=== PATIENT | female | born 2000 | race Caucasian/White ===

== ENCOUNTER 2018-10-28 11:50 | Observation (INO) | payer OTHER ==
[~2018-10-28] VITALS: Ht 157.5 cm; Wt 62.1 kg
--- NOTE | 2018-10-28 16:00 | NUR ---
PT TO ROOM FROM ER. REPORT RECEIVED FROM COURSEWARE DEVELOPER. PT A/O X4 VSS PT DENIES PAIN OR NAUSEA. ASSESSMENT COMPLETED. CALL LIGHT IN REACH. PT NPO AT THIS TIME. FAMILY AT BEDSIDE. PT USING HER LAPTOP AND APPEARS TO BE IN NO DISTRESS. PT DENIES NEEDS/CONCERNS.
--- NOTE | 2018-10-28 18:25 | NUR ---
REPORT TO CRESTER AND PT OFF FLOOR TO OR VIA HOSPITAL BED IN CARE OF CRESTER. IV ABX FLAGYL AND ROCEPHIN ALSO SENT TO OR WITH CRESTER.
--- NOTE | 2018-10-28 18:29 | CONS ---
[facility] [address], [place] [address] Signed DATE OF CONSULTATION: 10/28/2018 CHIEF COMPLAINT: Right lower quadrant abdominal pain. HISTORY OF PRESENT ILLNESS: Deysi is a 18-year-old young lady, otherwise healthy, who earlier today developed right lower quadrant abdominal pain with nausea. She had a little bit this morning, but has not been able to eat since then. She came to the emergency room with her family for evaluation. She was tender below [place] [id number]. Her beta-hCG was negative. The CT scan confirmed her thickened inflamed appendix stretching down towards the right side of the bladder. I was asked to admit her as a general surgeon on-call. She has been given IV fluids, pain medication and some Zosyn. Overall, she says she is doing fine. PAST MEDICAL HISTORY: Asthma as a child, but none since age 5. PAST SURGICAL HISTORY: IUD, tonsillectomy, and PE tubes. SOCIAL HISTORY: She does not smoke. She has an occasional drink. She and her mom prefer the [facility]. Richard Reynolds is her primary care provider. FAMILY HISTORY: The patient is adopted. REVIEW OF SYSTEMS: She had asthma as a child, but it stopped at age 5. ALLERGIES: None. MEDICATIONS: None. PHYSICAL EXAMINATION: VITAL SIGNS: Blood pressure 123/68, heart rate 76, respiratory rate 16, temperature 98.3. She is 98% on room air. She is 5 feet 2 inches, 62 kg. GENERAL: Deysi is a 18-year-old female who appears healthy and at her stated age. She actually walked from the bathroom back to bed and lie down without much difficulty. She does not appear systemically ill or toxic. Electronically Signed By: RIGO PUGH MD 10/28/18 1829 PATIENT NAME: DEYSI RIVAS CONSULTATION DATE OF : [birth year] REPORT #: [id number] PHYSICIAN: RIGO PUGH MD PCP: RICHARD REYNOLDS [facility] REPORT IS CONFIDENTIAL AND NOT TO BE RELEASED WITHOUT AUTHORIZATION [facility] [address], [place] [address] Signed LUNGS: Generally clear to auscultation bilaterally. HEART: Regular rate and rhythm. ABDOMEN: Soft, flat, but tender below McBurney's point on the right side. LABORATORY DATA: Her white blood cell count 13, hemoglobin 14, neutrophils 68. Electrolytes unremarkable. Beta-hCG negative. Albumin is 5. Liver function tests are negative. RADIOGRAPHIC STUDIES: A CT scan of abdomen and pelvis is reviewed and one can easily see the appendix thickened and dilated and headed down towards the right side of bladder. ASSESSMENT AND PLAN: Deysi is a 18-year-old female who presents with acute appendicitis. We have discussed the location and function of the appendix. We have discussed laparoscopic versus open appendectomy. We have reviewed the expected intraop and postop course. There is risk to surgery including, but not limited to bleeding, infection, scarring, change in contour of the skin, damage to bowel, appendiceal stump leak, postoperative intraabdominal abscess, and other unforeseen comorbidities. She and her mom expressed understanding and wished to proceed with surgery. Rigo Pugh MD ALB/MODL /[id number] cc: Richard Reynolds Copies: ~ Electronically Signed By: RIGO PUGH MD 10/28/18 1829 PATIENT NAME: DEYSI RIVAS CONSULTATION DATE OF : [birth year] REPORT #: [id number] PHYSICIAN: RIGO PUGH MD PCP: RICHARD REYNOLDS PAC REPORT IS CONFIDENTIAL AND NOT TO BE RELEASED WITHOUT AUTHORIZATION
--- NOTE | 2018-10-28 20:33 | NUR ---
10/28/182032 Miky,Chelsey Hassan 1952: PATIENT AWAKE. CALM. DENIES PAIN. O2 MASK REMOVED. PATIENT ON ROOM AIR. 1957: PATIENT C/O PAIN 7/10. MEDICATED FOR PAIN WITH IV FENTANYL. PATIENT CRYING INTERMITTENTLY. 2004: PATIENT C/O PAIN IN UPPER CHEST BY CLAVICLES. DENIES DIFFICULTY BREATHING. PATIENT REASSURED IT MOST LIKELY IS FROM CO2 GAS USED TO INFLATE ABDOMEN DURING SURGERY. PATIENT MEDICATED FOR PAIN WITH IV FENTANYL. 2009: PATIENT STATES PAIN INPROVED. RATES PAIN 5/10. 2020: PATIENT TRANSFERRED BACK TO M/S ROOM 113. FAMILY WAITING FOR PATIENT IN ROOM. REPORT GIVEN TO M/S RN.
--- NOTE | 2018-10-28 20:48 | NUR ---
2014 - arrived to floor from PACU, awake, alert and oriented. 2039 - Coop with assessment, 3 abd lap sites cdi, not passing gas, ivf infusing w/o problems. Family in room, scds in place,
--- NOTE | 2018-10-28 21:29 | NUR ---
VITALS DONE AND CHARTED.
--- NOTE | 2018-10-28 21:33 | NUR ---
MEDICATED WITH DILAUDID 0.5MG IV PER C/O ABD PAIN
--- NOTE | 2018-10-28 22:23 | NUR ---
AWAKENS EASILY, NO FURTHER C/O ABDPAIN. LAP SITES CDI. DENIES PASSING GAS. IVF INFUSING W/O PROBLEMS. CALL LIGHT AND FLUIDS AT BEDSIDE. FAMILY IN ROOM
--- NOTE | 2018-10-28 22:26 | NUR ---
VITALS DONE AND CHARTED.
--- NOTE | 2018-10-28 23:29 | NUR ---
VITALS DONE AND CHARTED. HELPED PT BACK FROM THE BATHROOM. BEDSIDE TABLE AND CALL LIGHT IN REACH. PT ASKED FOR PAIN MEDS, I INFORMED CADD MANAGER NURSE VLAD.
--- NOTE | 2018-10-28 23:40 | NUR ---
PT C/O 12/13 ABD PAIN. MEDICATED WTIH DILAUDID 1MG IV. PT GOT UP TO BR EARLIER AND VOIDED, NO N/V. BACK IN BED WATCHING TV. TOLERATING SIPS OF WATER. FAMILY INROOM
--- NOTE | 2018-10-29 01:12 | NUR ---
RESTING, NO DISTRESS, CPOX IN PLACE, NO FURTHER C/O PAIN, CALL LIGHT AT BEDSIDE
--- NOTE | 2018-10-29 01:44 | NUR ---
VITALS AND I&OS DONE AND CHARTED. BEDSIDE TABLE AND CALL LIGHT IN REACH. PT NEEDS NOTHING MORE AT THIS TIME.
--- NOTE | 2018-10-29 03:00 | NUR ---
RESTING, NO DISTRESS
--- NOTE | 2018-10-29 04:06 | NUR ---
AWAKE, UP TO BR, VOIDED, BACK TO BED, 1PA. C/O ABD PAIN. 11/12. MEDICATED WTIH DILAUDID 1MG IV. TOLERATING CLEAR FLUIDS, NO N/V, NOT PASSING GAS. CALL LIGHT AT BEDSIDE. IVF INFUSING W/O PROBLEMS
--- NOTE | 2018-10-29 05:55 | NUR ---
Currently resting, eyes closed, no c/o pain at this time. On room air, IVF infusing w/o problems. Abd 3 lap sites CDI. Denies passing flatus or burping. Has been medicated 3x with Dilaudid per abd pain with good pain control. Has tolerated clear liquids well, no n/v. Up to br x2, voiding QS.
--- NOTE | 2018-10-29 06:37 | NUR ---
VITALS AND I&OS DONE AND CHARTED. BEDSIDE TABLE AND CALL LIGHT IN REACH. PT NEEDS NOTHING ELSE AT THIS TIME.
--- NOTE | 2018-10-29 07:22 | NUR ---
RECIEVED BEDSIDE REPORT FROM ALEXA ALARCON. LAP APPY SITES ARE C/D/I. ABD IS TENDER. SHE IS TOLERATING SIPS OF CLEAR LIQUIDS. NO FLATUS REPORTED. VOIDING WELL. PAIN WELL CONTROLLED WITH PRN DILAUDID. CONTINUED CPOX DUE TO BRADYCARDIA AT TIMES.
--- NOTE | 2018-10-29 08:00 | NUR ---
CALL LIGHT ANSWERED. PATIENT GOES TO USE BATHROOM. BOYFRIEND IN ROOM. PATIENT BACKS TO BED. PATIENT COMPLAINS ABOUT PAIN. RN NOTIFIED. CALL LIGHT WITHIN REACH. NO OTHER NEEDS AT THIS TIME
--- NOTE | 2018-10-29 08:17 | OR ---
[facility] [address], [place] [address] Signed DATE OF OPERATION: 10/28/2018 SURGEON: Rigo Pugh MD PREOPERATIVE DIAGNOSIS: Acute appendicitis. POSTOPERATIVE DIAGNOSIS: Acute inflamed appendicitis. PROCEDURE: Laparoscopic appendectomy. ESTIMATED BLOOD LOSS: None. INDICATIONS: Deysi is a 18-year-old young lady, otherwise healthy, who developed right lower quadrant abdominal pain with nausea earlier today. She came to emergency room for evaluation. She was not systemically ill or toxic, but she was tender below McBurney's point. White count was up at 13,000. Beta-hCG was negative. A CT scan of the abdomen and pelvis showed her inflamed thickened dilated appendix headed down towards the right side of the bladder. She was admitted and given IV fluids, Zosyn, and pain control. I met with Deysi and her mother and her boyfriend earlier today. I explained to them the above findings. We reviewed the location and function of the appendix. We reviewed laparoscopic versus open appendectomy. They understand the expected intraop and postop course. We did review the risks including, but not limited to bleeding, infection, scarring, change in contour of the skin, damage to bowel, appendiceal stump leak, postoperative intraabdominal abscess, incisional hernias, and other unforeseen comorbidities. She had expressed understanding and wished to proceed. PROCEDURE NOTE: Deysi was taken in the operating room and placed in the supine position under general endotracheal tube anesthesia. She was given some Rocephin and Flagyl at start of the case. She was on subcutaneous heparin. SCDs were utilized. A Noble catheter was inserted with return of clear yellow urine. She was then prepped and draped in the usual sterile fashion. All trocars were then placed in usual positions under direct visualization of camera without difficulty. The appendix was easily elevated above the pelvis and from the cecum with linear stapler. The mesoappendix was then divided with our vascular load on linear stapler. Both staple lines were quite Electronically Signed By: RIGO PUGH MD 10/29/18 0817 PATIENT NAME: DEYSI RIVAS OPERATIVE REPORT DATE OF : [birth year] REPORT #: [id number] PHYSICIAN: RIGO PUGH MD PCP: RICHARD REYNOLDS PAC REPORT IS CONFIDENTIAL AND NOT TO BE RELEASED WITHOUT AUTHORIZATION [facility] [address], [place] [address] Signed hemostatic. The appendix was placed into an EndoCatch bag and taken out through the right subcostal trocar site. We used our laparoscopic suturing device to pass 0 Vicryl suture on either side of the fascia of the right subcostal trocar site. This was tied down to close this fascia primarily. After this, the gas was allowed to escape and the remaining trocars were removed. We closed the supraumbilical fascial trocar site with interrupted 0 Vicryl sutures. Local anesthetic was injected into all trocar sites. Each trocar site was irrigated and suctioned out until clear. The dermis of each trocar site was closed with interrupted 3-0 subcuticular Monocryl sutures. The skin edges were reapproximated with a running 6-0 fast absorbing plain gut suture. Deysi's Noble catheter was then removed without difficulty. She had 100 mL of clear yellow urine. Dry gauze and tape were then applied to all incisions. She was awakened from her anesthesia, extubated in the OR, and taken to recovery room in stable condition. Rigo Pugh MD ALB/MODL /[id number] cc: MD Keenan Watts Copies: RIGO PUGH MD ~ Electronically Signed By: RIGO PUGH MD 10/29/18 0817 PATIENT NAME: DEYSI RIVAS OPERATIVE REPORT DATE OF : [birth year] REPORT #: [id number] PHYSICIAN: RIGO PUGH MD PCP: RICHARD REYNOLDS [facility] REPORT IS CONFIDENTIAL AND NOT TO BE RELEASED WITHOUT AUTHORIZATION
--- NOTE | 2018-10-29 09:15 | NUR ---
CALL LIGHT ANSWERED. PATIENT GOES TO USE BATHROOM. ONE PERSON ASSISTING. PATIENT BACKS TO BED. MOM AND BOYFRIEND IN ROOM. VITAL SIGNS AND I&O DONE. CALL LIGHT WITHIN REACH. NO OTHER NEEDS AT THIS TIME
--- NOTE | 2018-10-29 09:40 | NUR ---
ASSISTED PATIENT WITH AMBULATION. PATIENT AMBULATE ONE LAP IN THE [place]. PATIENT BACKS TO BED. CALL LIGHT WITHIN REACH. NO OTHER NEEDS AT THIS TIME
--- NOTE | 2018-10-29 09:44 | NUR ---
PT UP WALKING IN HALLS. PT TOLERATED WELL, SHE DID STATE THAT IT WAS HARDER THAN SHE THOUGHT. RN ENCOURGED HER TO CONTINUE TO WALK SEVERAL TIMES A DAY TO GET THE GAS MOVING.
--- NOTE | 2018-10-29 11:59 | NUR ---
PT RESTING IN BED WITH BOYFRIEND AT . SHE IS ALERT AND ORIENTED. VERY PLEASANT, POLITE AND DID EXPRESS THAT SHE DESIRED MORE INFO REGARDING HER CONDITION POST OP AND DC POSSIBILITY. I SHARED WITH ALEXA FISH, SHE WILL SPEND SOME TIME WITH PT. PT THANKED ME FOR TIME, WILL FOLLOW NEEDED
--- NOTE | 2018-10-29 12:12 | NUR ---
SPOKE WITH [employer] REGARDING CM NEEDS FOR PATIENT. SHE STATES THIS PATIENT HAS NO NEEDS AT THIS TIME. SHE IS INDEPENDENT ADULT, HAS GOOD FAMILY SUPPORT, HAS PCP, HAS RESPONSIBLE RIDE HOME. DEFER ASSESSMENT AT THIS TIME, STAFF WILL PLACE CONSULT IF NEEDS ARISE.
--- NOTE | 2018-10-29 13:29 | NUR ---
PATIENT SITTING UP IN BED. BOYFRIEND IN ROOM. VITAL SIGNS AND I&O DONE. ICE WATER GIVEN. CALL LIGHT WITHIN REACH. NO OTHER NEEDS AT THIS TIME
--- NOTE | 2018-10-29 15:59 | NUR ---
PT IN THE SHOWER WITH ASSIST FROM HER MOTHER. RN WILL DC DRESSINGS AFTER SHOWER. PT HAS BEEN UP WALKING THE HALLS, TOLERATED WELL. PRN WALTER EFFECTIVE.
--- NOTE | 2018-10-29 16:10 | NUR ---
DRESSINGS D/C. SITES ARE WELL APROXIMATED, C/D/I. NO REDNESS, SWELLING, WARMTH, OR DRAINAGE.
--- NOTE | 2018-10-29 17:35 | NUR ---
PT UP AMBULATING IN HALLS, TOLERATES WELL. PT TOLERATES SMALL AMTS OF FULL LIQUIDS. IVF RUNNING PER ORDER. PT UP TO SHOWER. DRESSINGS ON INCISIONS DC. INCISIONS CDI, NO REDNESS, SWELLING, WARMTH. PAIN BETTER CONTROLLED WITH PRN NORCO Q4 HRS. NO GAS, NO BM.
--- NOTE | 2018-10-29 20:46 | NUR ---
BAND MACHINE OPERATOR ROUNDING COMPLETE. PT RESTING IN BED AWAKE. STATES THAT PAIN CONTINUES TO BE WELL CONTROLLED. DENIES NEEDS AT THIS TIME. CALL LIGHT IN REACH.
--- NOTE | 2018-10-29 20:55 | NUR ---
Vital signs and I&Os were complete, Patient doesnt need anything further at this time.
--- NOTE | 2018-10-29 21:59 | NUR ---
c/o abd pain 10/13, medicated with 2 norco tabs. coop with assessment, Denies passing gas or burping. no n/v, tolerating ful liquid diet
--- NOTE | 2018-10-30 00:19 | NUR ---
resting, eyes closed, no further c/o pain. Passing gas, IVF infusing w/o problems. scds off at her request, Declined Heparin SQ earlier, walked hallways with family 3x, tolerated well, Call light at bedside
--- NOTE | 2018-10-30 03:09 | NUR ---
UP TO BR, VOIDED CLEAR YELLOW URINE, BACK TO BED, TOLERATED WELL. C/O ABD PAIN 4/10, MEDICATED WITH 2 NORCO TABS, TOLERATING FULL LIQUID DIET WELL. NO N/V, CALL LIGHT AT BEDSIDE
--- NOTE | 2018-10-30 05:34 | NUR ---
CURRENTLY RESTING, HAS BEEN MEDICATED WITH NORCO 2X PER ABD PAIN WITH GOOD PAIN RELIEF. ABD LAP SITES INCISION W EDGES WELL APPROX, DRY. PASSING GAS, NO BM. TOLERATING FULL LIQUID DIET WELL, NO N/V. HAS WALKED HALLWAYS SEVERAL TIMES WITH FAMILY. IVF INFUSING W/O PROBLEMS
--- NOTE | 2018-10-30 06:53 | NUR ---
MEDICATED WITH 2 NORCO C/O 09/12 ABD PAIN. PASSING GAS, NO BM. TOLERATING FULL LIQUID DIET. FAMILY IN ROOM.
--- NOTE | 2018-10-30 07:09 | NUR ---
RECIEVED BEDSIDE REPORT FROM ALEXA ALARCON. PT SLEEPING SOUNDLY. PAIN WELL CONTROLED WITH PRN NORCO. PT IS PASSING GAS. IV IS S/L, TOLERATING PO FLUIDS WELL AND VOIDING VERY WELL. INCISIONS ARE CDI.
--- NOTE | 2018-10-30 07:48 | NUR ---
PT DECLINED HEPRIN INJECTION, STATED SHE "WOULD WALK ALL DAY RATHER THAN GET THAT SHOT". RN REMINDED HER THAT SHE NEEDS TO WALK FREQUENTLY. SHE HAS WALKED SEVERAL LAPS AROUND THE UNIT ALREADY THIS AM. NO BM, BUT IS PASSING GAS. REMINDED PT TO BRACE ABD WHEN COUGHING.
[2018-10-30] MEDS ORDERED: NORCO 5-325 TA1 EACH PO (09:07)
[2018-10-30] MEDS ORDERED: ADVIL200 MG PO (09:08)
--- NOTE | 2018-10-30 10:19 | NUR ---
PT DISCHARGE TEACHING COMPLETE. RN DISCUSSED WHEN TO CALL THE DR, FOLLOW UP, WORK RELEASE, DIET, AND PCP FOLLOW UP. PT AND HER MOTHER VERBALIZED UNDERSTANDING. IV REMOVED, CATH INTACT. VSS, HR KAYDEN MD AWARE AND PT WILL FOLLOW UP WITH PCP.
--- NOTE | 2018-10-31 08:39 | DS ---
[facility] [address], [place] [address] Signed ADMISSION DATE: 10/28/2018 DISCHARGE DATE: 10/30/2018 FINAL DIAGNOSIS: Acute inflamed appendicitis. PROCEDURE: Laparoscopic appendectomy. HISTORY OF PRESENT ILLNESS: Deysi is a 18-year-old female who came to the emergency room with a day history of right lower quadrant abdominal pain, nausea, and vomiting. In the ER, her vital signs were fine and her white count was at 13,000. Beta-hCG was negative. CT scan showed her appendicitis and she was tender in the right lower quadrant below McBurney's point. HOSPITAL COURSE: Deysi was admitted as above and started on IV fluids, pain control, and her Zosyn. She was taken to the operating room later that day for an uncomplicated laparoscopic appendectomy for acutely inflamed appendicitis. Her intraoperative and postoperative course were uncomplicated. The Tylenol was not enough to control her pain, so we had to bump her up to [place] 5 mg tablets. She has done very well after that. She is now tolerating her full liquid diet and has had moderate amount of flatus. She is able to perform her activities of daily living without difficulty and her abdominal exam is completely benign. She has now reached discharge status. DISCHARGE PLANS AND MEDICATIONS: Deysi will be discharged home with a prescription for [place] 5 mg tablets, 1 to 2 tablets p.o. q.4 to 6 hours p.r.n. severe postoperative pain. We will dispense 25 tablets with no refills. She can certainly purchase Tylenol, ibuprofen, or Naprosyn over the counter and use that for ygys-kf-vehahzra postoperative pain here in the next few days. She can always use ice over her incisions as well. She will continue a regular diet. She can perform her activities of daily living including walking up and down stairs and showering and bathing as usual. We have asked her not to do any heavy pushing, pulling, or lifting over about 20 pounds. We will keep her off work for now. We will see her back in the office in about a week. She did ask me to fill out a release from work form, which I did yesterday. Our nursing staff is in the process of getting the original copy currently here at discharge. She has expressed understanding and agrees above plan. Electronically Signed By: RIGO PUGH MD 10/31/18 0839 PATIENT NAME: DEYSI RIVAS DISCHARGE SUMMARY DATE OF : [birth year] REPORT #: [id number] PHYSICIAN: RIGO PUGH MD PCP: RICHARD REYNOLDS PAC REPORT IS CONFIDENTIAL AND NOT TO BE RELEASED WITHOUT AUTHORIZATION [facility] [address] [place] [address] Signed MD JENNY Watts/GREGORIA /[id number] cc: MD Keenan Watts Copies: RIGO PUGH MD ~ Electronically Signed By: RIGO PUGH MD 10/31/18 0839 PATIENT NAME: DEYSI RIVAS DISCHARGE SUMMARY DATE OF : [birth year] REPORT #: [id number] PHYSICIAN: RIGO PUGH MD PCP: RICHARD REYNOLDS [facility] REPORT IS CONFIDENTIAL AND NOT TO BE RELEASED WITHOUT AUTHORIZATION
== END 2018-10-30 09:55 | disposition home or self-care (01) ==
LOC: ED 11:50 → MS 11:52
PROVIDERS: ADMIT Colon & Rectal Surgery
PROC: 0DTJ4ZZ Resection of Appendix, Percutaneous Endoscopic Approach (ICD-10-PCS; principal; 2018-10-28 18:00)
DX: K35.80 Unspecified acute appendicitis (principal); Z97.5 Presence of (intrauterine) contraceptive device
CPT/HCPCS: 00840; 74177; 80053; 81001; 83690; 84703; 85025; 96361; 96365; 96372; 96375; 96376; 99285-25; G0378; J0696; J1100; J1170; J1644; J1885; J2250; J2270; J2405; J2543; J2704; J3010; J7060; J7120; Q9967

== ENCOUNTER 2018-11-22 16:24 | Inpatient (IN) | payer OTHER ==
[~2018-11-22] VITALS: Ht 157.5 cm; Wt 60.8 kg
--- NOTE | ~2018-11-22 | DS ---
[facility] [address], [place] [address] Draft ADMISSION DATE: 11/23/2018 DISCHARGE DATE: 11/28/2018 FINAL DIAGNOSIS: Distal small-bowel obstruction with ischemic bowel. PROCEDURES: Small-bowel resection with ntcb-ll-omok stapled anastomosis. HISTORY OF PRESENT ILLNESS: Deysi is a 18-year-old lady who came to us about a month prior to this admission for a routine laparoscopic appendectomy. She had inflamed appendix, which was easily elevated and removed with the help of the linear staplers. We have seen her in followup in the office. She was doing quite well. She came to our emergency room abruptly with severe crampy pain, nausea and vomiting. Her white count was up to 23,000. The CT scan showed some dilated loops of small bowel in the right pelvis. I have been asked to admit her as a general surgeon on-call. HOSPITAL COURSE: Deysi was admitted as above and started on her IV fluids, antibiotics and pain control. By the next morning, her laboratory work was not improved and she was having pain requiring narcotics in the right lower quadrant. We therefore took her to the operating room later that day for an infraumbilical laparotomy. She had what looked like a piece of small bowel that it twisted around itself about 8-10 cm from the ileocecal valve. That bowel was not salvageable, so it was resected and stapled amrn-sf-jybd anastomosis was performed. She has done well both intraop and postop. She is now eating, tolerating her food without any nausea or vomiting. She has had some diarrhea and if it does not clear, we have to send off some stool studies. I have explained this to her. Her incision is healing well. She is performing her activities of daily living and showering, bathing as usual. We have stopped antibiotics and again she has made good progress. We are discharging her to home. DISCHARGE PLANS AND MEDICATIONS: Deysi will be discharged home with a prescription for [place] 5/325 one tablet p.o. q.6 hours p.r.n. for severe postoperative pain, dispense 15 tablets with no refills. Otherwise, she can use some Tylenol, ibuprofen or Aleve for eqbv-py-pjgizrlv postoperative pain. In addition, she does have red hair and light skin. She is very sensitive. She had a rash, we think to the Flagyl, but today she had a rash in her left arm and we did stop the Zosyn yesterday. Consequently, we are not sure why she has that particular rash. She told me she uses some Benadryl cream and that really helps. She is certainly welcome to do that at home. I have asked her not to do any heavy pushing, PATIENT NAME: DEYSI RIVAS DISCHARGE SUMMARY DATE OF : [birth year] REPORT #: [id number] PHYSICIAN: RIGO PUGH MD PCP: RICHARD REYNOLDS PAC REPORT IS CONFIDENTIAL AND NOT TO BE RELEASED WITHOUT AUTHORIZATION [address] [address] [place] pulling, or lifting over about 20 pounds for a month and 50 pounds for a 2nd month, and then no restrictions. She can continue to shower and bathe as usual. 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 It is perfectly fine. She has expressed understanding and agrees above plan. MD JENNY Watts/DONELLL /[id number] cc: MD Richard Watts PA-C Copies: RIGO PUGH MD ~ PATIENT NAME: DEYSI RIVAS DISCHARGE SUMMARY DATE OF : [birth year] REPORT #: [id number] PHYSICIAN: RIGO PUGH MD PCP: RICHARD REYNOLDS PAC REPORT IS CONFIDENTIAL AND NOT TO BE RELEASED WITHOUT AUTHORIZATION
[~2018-11-22 16:24] MED LIST: ADVIL200 MG PO; NORCO 5-325 TA1 EACH PO
--- OUTSIDE RECORDS SUMMARY | 2018-11-22 16:26 | XMS ---
PreManage Notification: DEYSI RIVAS Security End Trimmer Events No recent Security Events currently on file CRITERIA MET - [facility] - 2 Visits in 30 Days CARE PROVIDERS BRENDA SHORE Nurse Practitioner: Adult Health Current PHONE: Unknown BRENDA SHORE Primary Care Current PHONE: Unknown Kamala has no Care Guidelines for this patient. Carlos VISIT COUNT (12 MO.) [address] [place] [address] TOTAL 2 NOTE: Visits indicate total known visits. ED/UCC VISIT TRACKING (12 MO.) 11/22/2018 16:25 [facility] OR TYPE: Emergency COMPLAINT: - ABD PAIN 10/28/2018 11:51 [facility] OR TYPE: Emergency COMPLAINT: - R ABD PAIN/NAUSEA INPATIENT VISIT TRACKING (12 MO.) 10/28/2018 11:52 [facility] OR TYPE: Observation COMPLAINT: - ACUTE APPENDICITIS DIAGNOSES: - Unspecified acute appendicitis - Right lower quadrant pain - Presence of (intrauterine) contraceptive device [email or web address]
--- NOTE | 2018-11-22 20:30 | NUR ---
PATIENT ARRIVED FROM THE ED WITH HER MOTHER. MAIKEL LENNON ASSISTED PATIENT TO BED. ORIENTED PATIENT TO THE ROOM. OPERATIONS EXPERT IN TO ASSIST WITH ADMISSION. DISCUSSED PLAN OF CARE. WRITTEN EDUCATION PROVIDED.
--- NOTE | 2018-11-22 22:00 | NUR ---
PRN PAIN AND NAUSEA MEDS PROVIDED. DISCUSSED NG TUBE PLACEMENT WITH PATIENT AND HER MOTHER. ALL QUESTIONS ANSWERED. NG TUBE PLACEMENT COMPLETED, PATIENT TOELRATED WELL. X-RAY CALLED TO CONFIRM PLACEMENT.
--- NOTE | 2018-11-22 23:00 | NUR ---
NG TUBE CONFIRMED VIA X-RAY, CONNECTED TO LIWS WITH SMALL AMOUNT OF BROWN OUTPUT NOTED. PATIENT REPORTS GOOD PAIN CONTROL AT THIS TIME AND NO NAUSEA.
--- NOTE | 2018-11-23 00:05 | NUR ---
PATIENT RESTING IN BED. BOYFRIEND AT BEDSIDE. PATIENT REPORTS GOOD PAIN CONTROL AND NO NAUSEA AT THIS TIME. NG TO LIWS, MINIMAL OUTPUT AT THIS TIME.
--- NOTE | 2018-11-23 01:45 | NUR ---
SCHEDULED ABX PROVIDED. PATIENT RESTING IN BED. WOKE EASILY TO VOICE. REPORTS PAIN 10/13. PRN MORPHINE PROVIDED. NG TUBE TO LIWS. MINIMAL OUTPUT. PATIENT DENIES NAUSEA.
--- NOTE | 2018-11-23 04:15 | NUR ---
PATIENT UP TO THE BATHROOM. SBA. PATIENT REPORTS GOOD PAIN CONTROL BUT HER THROAT IS SORE. LOZENGE PROVIDED. NG TUBE IN PLACE. IV FLUIDS PER ORDER. PATIENT DENIES NAUSEA.
--- NOTE | 2018-11-23 06:17 | NUR ---
PATIENT ARRIVED AROUND 2029 LAST NIGHT. NG TUBE PLACED PER ORDER, 200ML OUTPUT FOR SHIFT. MINIMAL NAUSEA SINCE ADMISSION. PRN MORPHINE X3 FOR ADEQUATE PAIN RELIEF. BOWEL SOUNDS ARE HYPOACTIVE. URINE OUTPUT QS. VS STABLE. IV FLUIDS PER ORDER. NPO. SBA.
--- NOTE | 2018-11-23 07:29 | NUR ---
REPORT RECEIVED FROM ALEXA SMITH. PT RESTING IN BED WITH BOYFRIEND AT BEDSIDE. PT REPORT 4/10 PAIN AT THIS TIME. NC TUBE IN PLACE TO LOW INTERMITTANT SUCTION. NO ADDITIONAL REQUESTS OR COMPLAINTS AT THIS TIME. CALL LIGHT WITHIN REACH.
--- NOTE | 2018-11-23 08:15 | NUR ---
MORNING ASSESSMENT AND MEDICATION DUE. PT RESTING IN BED. PT REPORTS 5/10 PAIN. SEE MAR FOR MEDICAITON GIVEN. ASSESSMENT DONE. PRE-OP EDUCATION DONE. PRE PROCEEDURE CHECK LIST COMPLETED. PT UP TO WHIPE DOWN WITH CHG WIPES. MEDICATIONS GIVEN. PT VERBALIZES UNDERSTANDING OF PROCEEDRES. NG TUBE TO LOW INTERMITTANT SUCTION. BOYFRIEND AT BEDSIDE. CALL LIGHT WITHIN REACH.
--- NOTE | 2018-11-23 10:44 | NUR ---
THIS RN TO ROOM TO CHECK ON PT. PT REPORTS 2/10 PAIN AND DENIES NEED FOR ADDITIONAL PAIN MEDICAITON AT THIS TIME. PT REQUESTS CEPACOL LOSENGE (SEE MAR FOR MEDICAITON GIVEN.). MOTHER AT BEDSIDE. QUESTIONS ABOUT PROCEDURES ASKED AND ANSWERED. NO ADDITIONAL REQUESTS OR COMPLAINTS AT THIS TIME. CALL LIGHT WITHIN REACH.
--- NOTE | 2018-11-23 11:30 | NUR ---
NOON ASSESSMENT DUE. PT REPORTS 5/10 PAIN, SEE MAR FOR MEDICATION GIVEN. PT DENIES NASUEA AND DENIES NEED FOR CEPACOL LOZANGE AT THIS TIME. ASSESSMENT DONE. FAMILY AT BEDSIDE. NG TUBE TO LOW INTERMITTANT SUCTION. PT ANTICIPATING OR RNS TO ARRIVE SOON. NO ADDITIONAL REQUESTS OR COMPLAINTS. CALL LIGHT WITHIN REACH.
--- NOTE | 2018-11-23 11:45 | NUR ---
OR RNS ARRIVED. PT TAKEN TO SURGERY DEPARTMENT. FAMILY ACCOMPANYING PT. NO ADDITIONAL REQUESTS OR COMPLAINTS AT THIS TIME.
--- NOTE | 2018-11-23 14:01 | NUR ---
PT TAKEN TO SURGERY, WILL FOLLOW UPON RETURN
--- NOTE | 2018-11-23 15:14 | NUR ---
PT FINISHED WITH SHOWER. THIS RN TO ROOM TO CHECK ON PT. PTS REPORTS A "SPOT OF BLOOD ON THE TOWEL." PTS REPROTS SHE HAD APPLIED NYSTATIN POWDER. PTS ADVISED TO CALL NURSING STAFF BEFORE APPLYING POWDER. KASEY AREA ASSESSED, REDNESS NOTED, NYSTATIN IN PLACE. NO ADDITIONAL CONCERNS AT THIS TIME, NO ADDITIONAL WOUNDS NOTED. PT VISITING WITH FAMILY. CALL LIGHT WITHIN REACH.
--- NOTE | 2018-11-23 15:20 | NUR ---
PT ARRIVED FROM PACU. PT DENIES ABDOMINAL PAIN AND NAUSEA BUT IS EXPRESSES EXTREME DISCOMFORT AND DISTRESS OVER RODRIGUEZ CATHTER. PT STATES SHE WANTS IT REMOVED SOON POSSIBLE AND MAY REFUSE THE CATHETER. MD CALLED. ORDERS GIVEN TO REMOVE RODRIGUEZ CATHETER, REMOVED PER PROTOCOL. ASSESSMENT DONE. DRESSING C/D/I. VITALS TAKEN. IV ABX STARTED. ICE AND WARM BLANKET PROVIDED. CPOX IN PLACE, PT AT 98% ON ROOM AIR. MOTHER AT BEDSIDE. CALL LIGHT WITHIN REACH. BED RAILS UP.
--- NOTE | 2018-11-23 16:06 | NUR ---
VITALS AND ASSESSMENT DUE. THIS RN TO BEDSIDE. PT VISITING WITH BOYFRIEND. PT SUCKING ON ICE CHIPS. PT DENIES PAIN AND NAUSEA. DRESSING C/D/I. VITALS TAKEN. PT DENIES ADDITIONAL REQUESTS OR COMPLAINTS AT THIS TIME. CALL LIGHT WITHIN REACH. BED RAILS UP.
--- NOTE | 2018-11-23 16:08 | NUR ---
[facility]ED [facility] PACU NON RESPONSIVE TO VERBAL/TACTILE STIMULI WITH ORAL AIRWAY IN PLACE. 1452 PT REACTIVE. ORAL AIRWAY REMOVE. 1500 OXYGEN REMOVED. SATS 98% ON RA. SITTING UP AT 30' WITH NO C/O'S PAIN. 1510 C/O DISCOMFORT FROM RODRIGUEZ. REPOSITIONED CATHETER AND DRAINING CLEAR YELLOW URINE. TALKED WITH PT ABOUT REMOVING CATHETER IN AM. 1520 TO ROOM 125. REPORT GIVEN TO ALEXA MCCARTHY.
--- NOTE | 2018-11-23 16:45 | NUR ---
PATIENT UP TO BATHROOM AND BACK TO BED, SBA. PATIENT VOIDED. CALL LIGHT IN REACH. NO FURTHER NEEDS AT THIS TIME.
[2018-11-23] MEDS ORDERED: PREDNISONE20 MG PO (17:00)
[2018-11-23] MEDS ORDERED: SUMATRIPTAN SUC50 MG PO (17:03)
--- NOTE | 2018-11-23 17:04 | NUR ---
MED REC COMPLETE
--- NOTE | 2018-11-23 17:20 | NUR ---
VITALS AND ASSESSMENT DUE. PT RESTING IN BED VISITING WITH BOYFRIEND. CPOX READS 97% ON ROOM AIR. PT REPORTS 2/10 PAIN AND DENIES NEED FOR ADDITIONAL PAIN MEDICATION. PT DENIES NAUSEA. DRESSIN C/D/I. PT UP TO VOID, STEADY ON FEET WITH SBA. PT STATES ALL PAIN FROM RODRIGUEZ CATHETER HAS RESOLVED. PT TOLERATING ICE CHIPS AND OCCATION HARD CANDY. NO ADDITIONAL REQUESTS OR COMPLAINTS AT THIS TIME. BED RAILS UP. CALL LIGHT WITHIN REACH.
--- NOTE | 2018-11-23 18:51 | NUR ---
PT HERE FOR SBO, SURGERY TODAY, POST OP DAY ZERO. PT REMAINS NPO WITH ICE CHIPS Q8 HOURS AND HARD CANDY ALLOWED. NG TUBE REMOVED IN OR. RODRIGUEZ PLACED BUT REMOVED POST OP DUE TO DISCOMFORT. PT REPORTS 2-6/10 PAIN THIS SHIFT, GOOD PAIN CONTROL WITH Q2 PRN DILAUDID. PT DENIES NAUSEA THIS SHIFT. CPOX IN PLACE R/T FREQUENT PAIN MEDICATION. PT MAINTAINING O2 SATURATIONS ON ROOM AIR ABOVE 92%. PT USES CALL LIGHT APPROPRIATLY.
--- NOTE | 2018-11-23 19:21 | NUR ---
CHARGE NURSE ROUNDS WITH DAY CHARGE NURSE. PT IN BED, VISITING WITH FRIENDS, SMILING. DENIES NEEDS AT THIS TIME.
--- NOTE | 2018-11-23 19:30 | NUR ---
BEDSIDE REPORT RECEIVED FROM ALEXA MCCARTHY. PT RESTING IN BED VISITING WITH FRIENDS. IVF INFUSING WNL. SPO2 WNL CONT PULSE OX IN PLACE ON ROOM AIR. MIDLINE DRESSING CDI. PT RATES PAIN 2/10 IN ABDOMEN STATES, "ITS OKAY". CALL LIGHT IN REACH. NO REQUESTS AT THIS TIME.
--- NOTE | 2018-11-23 20:26 | NUR ---
PT ASSESSMENT COMPLETE. IV ANTIBIOTIC INFUSING WNL ORDERED. PRN PAIN MEDICATION ADMINISTERED FOR 3/10 INCREASING ABDOMINAL PAIN. DRESSING CDI. BOWEL TONES PRESENT, HYPOACTIVE, ABDOMEN SOFT, NONTENDER. SBA TO RESTROOM FOR VOID. PT NOW AMBULATING IN HALLWAY WITH FAMILY, GAIT STEADY.
--- NOTE | 2018-11-23 21:12 | NUR ---
NEW BAG IVF INFUSING WNL ORDERED. PT RESTING IN BED WATCHING TV. RATES PAIN 3/10 IN LOWER ABDOMEN, "SHARP". NO REQUESTS AT THIS TIME. ICE PACK IN PLACE. CALL LIGHT IN REACH.
--- NOTE | 2018-11-23 23:08 | NUR ---
CHECKED ON PT, REPORTS PAIN 5/10 IN LOWER ABDOMEN. PRN PAIN MEDICATION ADMINISTERED. ICE CHIPS, HARD CANDY IN REACH. IVF INFUSING WNL. CALL LIGHT IN REACH. LIGHTS OFF IN ROOM.
--- NOTE | 2018-11-24 00:43 | NUR ---
PT RESTING IN BED WITH EYES CLOSED. IVF INFUSING. SPO2 WNL ON RA. BREATHING EQUAL AND NON-LABORED. LIGHTS OFF IN ROOM.
--- NOTE | 2018-11-24 01:22 | NUR ---
CALL LIGHT ANSWERED, IV CEFEPIME INFUSION COMPLETE. PT RATES PAIN 6/10 IN LOWER ABDOMEN, ABDOMENT TENDER, SOFT, BOWEL TONES ACTIVE. PT REPORTS SHARP PAIN. PRN PAIN MEDICATION ADMINISTERED. SBA TO RESTROOM FOR VOID AND BACK TO BED, DYSURIA WITH VOID. ICE PACK PROVIDED FOR ABDOMEN. IVF INFUSING WNL. CALL LIGHT IN REACH.
--- NOTE | 2018-11-24 03:46 | NUR ---
CALL LIGHT ANSWERED, PT C/O 02/12 ABDOMINAL PAIN, RIGHT SHOULDER PAIN. PRN PAIN MEDICATION ADMINISTERED. PT OUT OF BED, AMBULATING IN HALLWAY WITH MOTHER. IVF INFUSING WNL. PRN NAUSEA MEDICATION ADMINISTERED AFTER PT WALK. PT NOW BACK RESTING IN BED STATES "SHOULDER PAIN WENT AWAY". CALL LIGHT IN REACH. NO ADDITIONAL REQUESTS AT THIS TIME.
--- NOTE | 2018-11-24 05:18 | NUR ---
VSS POST OP. PT AMBULATING IN HALLWAY X 2 THIS SHIFT, GAIT STEADY. NAUSEA X 1, PRN MEDICATION ADMINISTERED. PRN DILAUDID THROUGHOUT SHIFT AVAILABLE FOR PAIN CONTROL. MIDLINE DRESSING CDI, BOWEL TONES ACTIVE, ABD. SOFT, TENDER. SBA. NPO WITH ICE CHIPS Q8H, HARD CANDY. VOIDING QS. IVF INFUSING WNL ORDERED.
--- NOTE | 2018-11-24 06:01 | CONS ---
[facility] [address], [place] [address] Signed DATE OF CONSULTATION: 11/23/2018 CHIEF COMPLAINT: Right pelvic pain. HISTORY OF PRESENT ILLNESS: Deysi is a 18-year-old female, otherwise healthy, who underwent an uncomplicated laparoscopic appendectomy about a month ago. I had seen her in office followup, she was doing fine. Yesterday, she developed significant pain in the right lower quadrant and right pelvic pain with some nausea and vomiting. She came to emergency room for evaluation. She was tender deep in the right pelvis with an increased white blood cell count. CT scan of abdomen and pelvis showed what probably was a small bowel obstruction in the right pelvis. I had been operating in the last evening and I saw Deysi in the emergency room and reviewed the chart. She was indeed tender in the right lower quadrant. We went ahead and admitted her, started her with an NG tube and some antibiotics. This morning, really she is no better. White count is still elevated and she is laminating machine tender requiring narcotics. I had explained to Deysi and her mom last night and today that she is going to need to go to the operating room for what appears to be a small bowel obstructions/closed-loop obstruction. PAST MEDICAL HISTORY: None. PAST SURGICAL HISTORY: Tonsils, PE tubes, laparoscopic appendectomy and IUD. SOCIAL HISTORY: She does not smoke. She has a drink once in a while. She is adopted. Her mother is at [phone]. Keenan Reynolds is her primary care provider, they prefer [facility]. FAMILY HISTORY: None. REVIEW OF SYSTEMS: She had 10 systems reviewed. No other issues. ALLERGIES: None. MEDICATIONS: None. Electronically Signed By: RIGO PUGH MD 11/24/18 0601 PATIENT NAME: DEYSI RIVAS CONSULTATION DATE OF : [birth year] REPORT #: [id number] PHYSICIAN: RIGO PUGH MD PCP: RICHARD REYNOLDS PAC REPORT IS CONFIDENTIAL AND NOT TO BE RELEASED WITHOUT AUTHORIZATION [facility] [address], [place] [address] Signed PHYSICAL EXAMINATION: VITAL SIGNS: Blood pressure 125/73, heart rate 54, respiratory rate 15, temperature 97.6. She is 100% on room air. She is 5 feet 2 inches at 60 kg. GENERAL: Deysi is a 18-year-old female lying supine in her hospital bed. Her NG tube shows mainly clear gastric fluid. She does not appear systemically ill or toxic. LUNGS: Clear to auscultation bilaterally. HEART: Regular rate and rhythm. ABDOMEN: Soft and flat, but she is tender in the right pelvic area. LABORATORY DATA: Her white blood count 23.7, hemoglobin 13, neutrophils 63, BUN 6, creatinine 0.5, albumin 3.9. Specific gravity was up at 1.052. Beta-hCG negative. Lipase was 89. RADIOGRAPHIC STUDIES: A CT scan of the abdomen and pelvis was reviewed including the report. She does have dilated loops in the right pelvis. There was a concern about a closed-loop obstruction. ASSESSMENT AND PLAN: Deysi is a 18-year-old female, who presents with what looks like a small bowel obstruction from a close loop of bowel in the right pelvis. She had a laparoscopic appendectomy about a month ago. I had to come back and reviewed the laparoscopic appendectomy and it was straightforward. She has been admitted, given IV fluids, NG tube. Antibiotics were started. She is still having pain and increased white blood cell count. I explained to Deysi and mom, we need to go to the operating room for a laparotomy and we will be able to evaluate that bowel. She may or may not need small-bowel resection depending on intraoperative findings. There is risk of surgery including, but not limited to bleeding, infection, scarring, change in contour of the skin, damage to bowel, anastomotic leak, recurrent bowel obstruction, recurrent adhesions, incisional hernias and other unforeseen comorbidities. They have expressed understanding wished to proceed. MD JENNY Watts/MODL /[id number] cc: Keenan Reynolds Electronically Signed By: RIGO PUGH MD 11/24/18 0601 PATIENT NAME: DEYSI RIVAS CONSULTATION DATE OF : [birth year] REPORT #: [id number] PHYSICIAN: RIGO PUGH MD PCP: RICHARD REYNOLDS [facility] REPORT IS CONFIDENTIAL AND NOT TO BE RELEASED WITHOUT AUTHORIZATION [address] [address] Signed Rigo Pugh MD Copies: RIGO PUGH MD ~ Electronically Signed By: RIGO PUGH MD 11/24/18 0601 PATIENT NAME: EVELYNDEYSI MAE CONSULTATION DATE OF : [birth year] REPORT #: [id number] PHYSICIAN: RIGO PUGH MD PCP: RICHARD REYNOLDS PAC REPORT IS CONFIDENTIAL AND NOT TO BE RELEASED WITHOUT AUTHORIZATION
--- NOTE | 2018-11-24 06:01 | OR ---
[facility] [address], [place] [address] Signed DATE OF OPERATION: 11/23/2018 SURGEON: Rigo Pugh MD PREOPERATIVE DIAGNOSIS: Small bowel obstruction. POSTOPERATIVE DIAGNOSIS: Small bowel obstruction. PROCEDURES: Small bowel resection with stapled lzrn-ue-gwes anastomosis. ESTIMATED BLOOD LOSS: Minimal. FINDINGS: Deysi had a bandlike constriction about 8-10 cm from the ileocecal valve for unclear reasons. It created a closed-loop obstruction and about 15 cm of her terminal ileum had to be resected. We then proceeded with a standard stapled [id number] anastomosis. INDICATIONS: Deysi is a very pleasant 18-year-old young female who is at her ideal body weight. She came about a month ago for a very uncomplicated laparoscopic appendectomy. On the CT scan, we could see the appendix headed down towards the bladder. During surgery, it was a simple matter to the grasp the appendix. We brought it up without any adhesions to any other structures, very easily and readily divided the appendix from the cecum with our linear stapler as well as the mesoappendix with our linear stapler. Her intraop and postop courses were uncomplicated. I had seen her in our office and she was doing great. Yesterday, she had a fairly sudden onset of abdominal pain with multiple repeated episodes of nausea and vomiting. She came to emergency room for evaluation. She was tender in the right pelvic area with an elevated white count, that is she was negative. CT scan showed a dilated loop of small bowel in the right hemipelvis. The proximal and distal portions of small bowel were decompressed and therefore the consideration for closed-loop obstruction was made. We admitted overnight and started on IV fluids, pain control, and antibiotics. Early this morning when I saw her, she really was no better and the white count was still elevated. Consequently, we decided we would take her to the operating room as soon as we had space in the crew available. I had explained this to Deysi her mother and her boyfriend. I explained on this occasion, we would use a short infraumbilical incision in order to look into the abdomen Electronically Signed By: RIGO PUGH MD 11/24/18 0601 PATIENT NAME: DEYSI RIVAS OPERATIVE REPORT DATE OF : [birth year] REPORT #: [id number] PHYSICIAN: RIGO PUGH MD PCP: RICHARD REYNOLDS [facility] REPORT IS CONFIDENTIAL AND NOT TO BE RELEASED WITHOUT AUTHORIZATION [facility] [address], [place] [address] Signed and see if the bowel was viable or not if not indeed resected. I explained to them the nature of that surgery along with its risks including, but not limited to bleeding, infection, scarring, change in contour of the skin, damage to bowel, anastomotic leak, incisional hernias and other unforeseen comorbidities including immediate and long-term recurrent bowel obstructions. They had expressed understanding and wished to proceed. PROCEDURE NOTE: I had met with Deysi, her mother and her boyfriend. Once again, and I believe it was her aunt. After talking with them and answering the questions, we took Deysi in the operating room and placed in the supine position under general endotracheal tube anesthesia. She was already on preoperative antibiotics and subcutaneous heparin. SCDs were in place. Noble catheter was inserted with return of a clear eunice colored urine. She was then prepped and draped in the usual sterile fashion. We could not palpate a specific mass in the pelvis. We used a standard infraumbilical midline incision and carried that into the abdomen with the help of the cautery. We could immediately see the discolored small bowel. I was able to look over and see the cecum and right colon it was completely uninvolved. The appendiceal stump was healing beautifully without any adhesions or any other structures. Similarly, the mesoappendix and the staple line was healing well without any adhesions to other structures. We kept the incision small, so I had to pass my hand through the incision underneath her small bowel in the posterior cul-de-sac. The inflamed small bowel was elevated slowly and carefully and brought out onto the abdominal wall. We looked down, when examined her right ovary was fine, the fallopian tube was fine. All the area in the cul-de-sac was fine at all as well as this sacral promontory and her sigmoid colon. It looked like the bowel twisted on itself and caused its own closed-loop obstruction. We placed moist white laps all the way around the small bowel in the abdominal wall and we divided the proximal and distal small bowel with the help of PATTIE 75 mm stapler. The small bowel mesentery was then divided with Pean clamps and 0 Vicryl ties. We placed the silk stitch from the distal portion of the small bowel and then it was passed off the field. We had taken several pictures throughout for photodocumentation. Our nurse did open the specimen on the back table and we could see that the proximal and distal ends were viable, but the midportion was quite dark and hemorrhagic and hyperemic and much of it was black. After this, we proceeded with a standard dkiw-oo-slth anastomosis. The opening in the mesentery was closed with a running 2-0 Vicryl suture. We used silk stitches to bring yvzq-[id number]-cqch on the antimesenteric side of the small bowel. We opened the corners of the small bowel and inserted the PATTIE 75 mm stapler to bring the two pieces of small bowel together. The end of the small bowel was then completely closed and the previous staple lines were completely removed with the help of the TA-60 stapler. We oversewed a couple of small bleeders on the staple lines in the small bowel. We then used silk interrupted sutures to bring to provide Lembert stitches over the anterior portion of staple line. We looked inside the bowel and it was healthy without any bleeding from the staple line. The anastomosis was probably 55 cm in length. After this, the bowel was irrigated and Electronically Signed By: RIGO PUGH MD 11/24/18 0601 PATIENT NAME: DEYSI RIVAS OPERATIVE REPORT DATE OF : [birth year] REPORT #: [id number] PHYSICIAN: RIGO PUGH MD PCP: RICHARD REYNOLDS PAC REPORT IS CONFIDENTIAL AND NOT TO BE RELEASED WITHOUT AUTHORIZATION [facility] [address], [place] [address] Signed then our laps were removed and passed off the field. We then irrigated out around the cecum and down around the uterus in the pelvis and everything once again seemed completely unremarkable. This appears all be limited to the small bowel itself having twisted on itself. After this, the small bowel was returned to the abdomen carefully and then a very thin omentum was brought down over the area. We closed the midline fascia with interrupted [id number]-rg-tcams #1 PDS sutures. We injected local anesthetic on either side of the incision in the abdominal wall as well as some in the subcutaneous tissues. The wound was then irrigated and suctioned out until clear. The dermis was reapproximated with interrupted 3-0 Monocryl sutures. We reapproximated skin edges with a running 6-0 fast absorbing plain gut suture. Dry gauze and tape were then applied. After this, our anesthesia provider provided bilateral tap TAP blocks. Care was taken not used utilized too much local anesthetic. We left our Noble catheter in place. Deysi was awakened from anesthesia, extubated in the OR, and taken to recovery room in stable condition. Rigo Pugh MD ALB/MODL /[id number] cc: Richard Reynolds Copies: ~ Electronically Signed By: RIGO PUGH MD 11/24/18 0601 PATIENT NAME: DEYSI RIVAS OPERATIVE REPORT DATE OF : [birth year] REPORT #: [id number] PHYSICIAN: RIGO PUGH MD PCP: RICHARD REYNOLDS PAC REPORT IS CONFIDENTIAL AND NOT TO BE RELEASED WITHOUT AUTHORIZATION
--- NOTE | 2018-11-24 06:26 | NUR ---
PT RESTING IN BED, RATES PAIN 7/10 IN LOWER ABDOMEN. PRN PAIN MEDICATION ADMINISTERED. IVF INFUSING WNL. PT EDUCATED ON ADVANCED DIET, REFUSES ADDITIONAL CLEAR LIQUIDS AT THIS TIME. ICE CHIPS IN REACH. CALL LIGHT NEXT TO PT.
--- NOTE | 2018-11-24 07:23 | NUR ---
HELPED PT TO RESTROOM, GOT HIM TO THE CHAIR WITH TWO WARM BLANKETS, GOT HIS BREAKFAST ORDERED. CALL LIGHT IN PLACE.
--- NOTE | 2018-11-24 07:36 | NUR ---
RECIEVED REPORT ON PT. SHE IS RESTING QUIETLY ON BED. DENIES ANY NEEDS. DR PGUH IN TO SEE PT.
--- NOTE | 2018-11-24 09:30 | NUR ---
PT C/O ITCHING AND FEELING HOT AFTER FLAGYL STARTED. NOTED PT IS FLUSHED AND HAS RASH ALL OVER BACK. CALL PLACED TO DR PUGH AND RECIEVED ORDERS TO DC FLAGYL AND CEFEPIME AND BEGIN ZOSYN.
--- NOTE | 2018-11-24 10:00 | NUR ---
DRSG REMOVED FROM MIDLINE INCISION, WELL APPROX WITH STITCHES, SBA UP INTO SHOWER. MOM IN ROOM ASSISTING.
--- NOTE | 2018-11-24 11:28 | NUR ---
pt reports pain 7/10 given, 1.5mg i.v. dilaudid.
--- NOTE | 2018-11-24 12:00 | NUR ---
AMBULATING IN [place] WITH MOM, IN GOOD SPIRITS, DENIES NAUSEA.
--- NOTE | 2018-11-24 16:44 | NUR ---
ROOM CHANGE TO ROOM 112. BRIGHTER ROOM WITH GOOD VIEW. PT VERY PLEASED, PT IS HAVING GOOD PAIN CONTROL WITH DILAUDID, PT STATES SHE IS REALLY HUNGRY, CHICKEN BROTH GIVEN AT THIS TIME. BOWEL SOUNDS ARE ACTIVE. TOLERATED ZOSYN WELL.
--- NOTE | 2018-11-24 17:50 | NUR ---
PT HAS HAD A GOOD DAY, DRSG REMOVED TO MIDLINE, OPEN TO AIR, SHOWERED, WALKED IN HALLWAY WITH MOM SEVERAL TIMES, TOLERATING CLEAR LIQUIDS WELL, HUNGRY, GOOD BOWEL SOUNDS,ABX HAS BEEN CHANGED DUE TO REACTION THIS AM.
--- NOTE | 2018-11-24 19:22 | NUR ---
PT IS AWAKE IN BED, SHE HAS SEVERAL VISITORS IN THE ROOM AT THIS TIME. SHE DENIES NEEDS AT THIS TIME. CALL LIGHT IS WITHIN REACH.
--- NOTE | 2018-11-24 21:00 | NUR ---
ASSESSED PT AND ADMINISTERED MEDICATIONS. DILAUDID ADMINISTERED FOR PAIN. MIDLINE SUTURES ARE CDI WITH WELL APPROXIMATED EDGES. PT REFUSED SCDS AND HEPARIN. SHE WALKED THE HALLS ALOT TODAY AND IS GOING TO WALK AGAIN NOW WITH HER MOM IN THE HALLS. SHE DENIES FURTHER NEEDS. CALL LIGHT IS CLOSE.
--- NOTE | 2018-11-24 22:29 | NUR ---
PT IS RESTING WITH EYES CLOSED, RR IS EVEN AND NONLABORED. CALL LIGHT IS CLOSE.
--- NOTE | 2018-11-24 23:39 | NUR ---
PT IS RESTING WITH EYES CLOSED, RESPIRATIONS ARE EVEN AND NONLABORED. CALL LIGHT IS WITHIN REACH.
--- NOTE | 2018-11-25 01:25 | NUR ---
PT AWOKE ASKING FOR PAIN MEDS FOR 8/10 PAIN. SHE STATES SHE HAS NOT SLEPT THIS LONG WHILE BEING HER. ADMINISTERED DILAUDID 1.5MG. ABX NOW INFUSING WITH NEW BAG OF IV FLUID. FRESH ICEPACK ON ABDOMEN, INCISION REMAINS CDI. FRESH ICEWATER AT BEDSIDE PT DID NOT FINISH HER LAST 250MLS OF WATER FOR THE LAST 8 HRS. SHE USED THE RESTROOM AND IS GETTING UP TO TAKE A WALK WITH HER MOM IN THE HALLS. CALL LIGHT IS WITHIN REACH.
--- NOTE | 2018-11-25 03:50 | NUR ---
PT IS RESTING WITH EYES CLOSED, RESPIRATIONS ARE EVEN AND NONLABORED. CALL LIGHT IS CLOSE AND HER MOM IS IN THE ROOM.
--- NOTE | 2018-11-25 05:04 | NUR ---
PT IS RESTING WITH EYES CLOSED, RESPIRATIONS ARE EVEN AND NONLABORED. IV IS INFUSING AND CALL LIGHT IS WITHIN REACH. PT'S MOM IS IN THE ROOM.
--- NOTE | 2018-11-25 05:38 | NUR ---
ADMINISTERED DILAUDID FOR 6/10 PAIN. PT IS UP TO THE RESTROOM AND WILL WALK WALK THE HALLS WHEN SHE IS DONE. FRESH ICEPACK IS READY FOR HER AT BEDSIDE.
--- NOTE | 2018-11-25 06:42 | NUR ---
PT SLEPT WELL LAST NIGHT. SHE IS ON RA AND CPOX WITH GOOD O2 SAT. SHE AMBULATES SBA. SHE IS TOLERATING CLEAR LIQUIDS OF 250MLS Q8H. SHE IS NOT PASSING GAS YET. HER INCISION IS CDI. PAIN IS CONTROLLED WITH DILAUDID AND ICE. SHE HAS D5LR INFUSING AT 100.
--- NOTE | 2018-11-25 07:10 | NUR ---
REPORTRECEIVED FROM SPA DIRECTOR/FINANCE RN. PT IN BED, REPORTS PAIN 11/12. PRN DILAUDID TO BE GIVEN BY PRESCHOOL ASSISTANT TEACHER. D5LR @ 100 INFUSING WNL. CPOX IN PLACE, 95% ON RA, HEART RATE 57. DENEIS FURTHER NEEDS. CALL LIGHT IN REACH.
--- NOTE | 2018-11-25 09:00 | NUR ---
PT OUT AMBULATING HALLS.
--- NOTE | 2018-11-25 11:44 | NUR ---
PT AMBULATING INDEPENDENTLY IN HALLS. TOLERATING WELL.
--- NOTE | 2018-11-25 15:44 | NUR ---
SET PATIENT UP FOR A SHOWER. PATIENT IS WAITING FOR HER MOM TO COME BACK. TO HELP HER WITH HER SHOWER.
--- NOTE | 2018-11-25 17:20 | NUR ---
PT UP AMBULATING HALLS.
--- NOTE | 2018-11-25 19:03 | NUR ---
PATIENT'S MOM HELPED HER WITH HER SHOWER. BED LINENS CHANGED.
--- NOTE | 2018-11-25 19:44 | NUR ---
AWAKE, VISITING WITH FAMILY, NO C/O PAIN, IVF INFUSING
--- NOTE | 2018-11-25 22:41 | NUR ---
ambulated hallways up and down x2 acompanied by mother. C/o abd pain 12/13, staes not passing gas. Medicated with Dilaudid 1.5mgIV. In bed. Declined Heparin sq earlier. Mother at bedside
--- NOTE | 2018-11-26 00:23 | NUR ---
Resting, no distress, cpox inplace, 96%. No further c/o abd pain. IVF infusing.Tolerating fluid restriction, call light at bedside. Mother rooming in.
--- NOTE | 2018-11-26 04:06 | NUR ---
PT AWAKE, WALKED TO BR, VOIDED, BACK TO BED. C/O 12/13 ABD. MEDICATED WITH DILAUDID 1MG IV. IVF INFUSING W/O PROBLEMS. CALL LIGHT AT BEDSIDE, CPOX INPLACE. SATS AT 96% ON ROOM AIR. MOTHER ROOMING IN.
--- NOTE | 2018-11-26 06:09 | NUR ---
CURRENTLY RESTING, EYES CLOSED. MIDLINE INCISION W/SUTURS CDI, EDGES WELL APPROX. ANA. DENIES PASING GAS, TOLERATING SIPS OF WATER. IVF INFUSING W/O PROBLEMS, NO C/O ADVERSE REACTION. DECLINED SB HEPARING, DECLINES SCDS, WAS WALKED HALLWAYS OFTEN. HAS BEEN MEDICATED WITH DILAUDID IV 3X THIS SHIFT. WITH GOOD PAIN RELIEF. NO N/V, CALL LIGHT AT BEDSIDE. MOTHER ROOMING IN.
--- NOTE | 2018-11-26 06:42 | NUR ---
ambulating with mother, medicated with dilaudid 1mg iv c/o 6/10 abd pain, not passing gas. Dr Gamez in room examining pt. IVF decreased to 75 as per new orders, pt will be on full liquid diet. No n/v
--- NOTE | 2018-11-26 07:24 | NUR ---
RECEIVED REPORT FROM INSTRUMENTATION CONTROLS ENGINEER RN. PT IN BED WITH EYES CLOSED. CALL LIGHT IN REACH.
--- NOTE | 2018-11-26 09:32 | NUR ---
ASSESSMENT COMPLETED. PAIN 09/12. INCISION C/D/I AND WELL APPROXIMATED. BOWEL TONES ACTIVE. DENIES PASSING FLATUS OR STOOL. ICE TO ABDOMEN. CALL LIGHT IN REACH. DENIES NEEDS.
--- NOTE | 2018-11-26 12:09 | NUR ---
Patient received 0.5mg Dilaudid IV around 1030; abulated in hallway; up to restroom. Still reported pain level 4/10; medicated with 1mg dilaudid IV to manage pain.
--- NOTE | 2018-11-26 14:56 | NUR ---
PT UP WITH MOTHER ASSISTANCE TO SHOWER.
--- NOTE | 2018-11-26 16:05 | NUR ---
PATIENT TOOK A SHOWER ALSO WALKED 2 LAPS AROUND MED SURG. WITH HER MOM.
--- NOTE | 2018-11-26 17:56 | NUR ---
PT OUT AMBLATING IN HALLS.
--- NOTE | 2018-11-26 18:18 | NUR ---
PT HAD A GOOD DAY. PAIN WELL CONTROLLED WITH 1MG IV DILAUDID. LAST DOSE AT 1615. NO N/V. BOWEL TONES ACTIVE. NO FLATUS OR BM AT THIS TIME. D5LR AT 75 INFUSING. U/O QS. TOLERATING FULL LIQUID DIET. AMBULATING IN HALLS. IV REPLACED IN RAC. ZOSYN.
--- NOTE | 2018-11-26 19:42 | NUR ---
coop with assessment, medicated with dilaudid 1mg iv c/o 12/13 abd pain. declined heparin sq and scds, walking in hallways. denies passing gas , no bm. abd midline incision with sutures cdi. edges well approximated. ly. Family in room
--- NOTE | 2018-11-26 21:48 | NUR ---
IN ROOM, RESTING, EYES CLOSED, NO FURTHER C/O PAIN, CALL LIGHT AND FLUIDS AT BEDSIDE
--- NOTE | 2018-11-26 22:00 | NUR ---
CORPORATE TREASURER ROUNDING NOTE. PT RESTING IN BED, PT'S BOYFRIEND SETTING COUCH UP TO STAY THE NIGHT, SHOWN WHERE SHEETS AND BLANKET LOCATED. UNDERSTANDING STATED. BOTH DENY NEEDS AT THIS TIME. CALL LIGHT IN REACH. WHITE BOARD UPDATED.
--- NOTE | 2018-11-26 22:42 | NUR ---
Patients friend came to the RN station asking about the volume on the TV. I showed them where the other remote was, they were thankful. Nothing else needed at this time.
--- NOTE | 2018-11-26 22:51 | NUR ---
Pt used call light to ask for more pain medication and two new ice packs. She did not need anything else at this time.
--- NOTE | 2018-11-26 22:52 | NUR ---
in bed watching tv, c/o abd pain 6/10, not passing gas. midline inciions cdi sutures intact. Call light at bedside , toleratiang full liquid diet. , ivf infusing, r hand elevated, decreased edema form iv infiltration earlier in the dauy.
--- NOTE | 2018-11-27 03:00 | NUR ---
RESTING, EYES CLOSED, NO DISTRESS, IVF INFUSING W/O PROBLEMS, CALL LIGHT AT BEDSIDE. FAMILY ROOMING IN
--- NOTE | 2018-11-27 05:39 | NUR ---
CURRENTLY AWAKE, C/O ABD PAIN, 12/13, MEDICATED WITH DILAUDID 1MG IV. NOT PASSING GAS, ABD SLIGHTLY DISTENDED, MIDLINE INCISION INTACT, EDGES WELL APPROX, SUTURES IN PLACE. HEA BOWEL TONES. HAS BEEN MEDICATED 3X THIS SHIFT PER C/O ABD PAIN WITH GOOD PAIN RELIEF, TOLERATING FULL LIQUID DIET. NO N/V HAS WALKED UP AND DOWN HALLWAYS SEVERAL TIMES. TOLERATING WELL
--- NOTE | 2018-11-27 07:50 | NUR ---
REPORT RECEIVED FROM PHYSICIAN [employer]ORTS MEDICINE RN. PT IN BED WITH EYES CLOSE. D5LR AT 75 INFUSING. CALL LIGHT IN REACH.
--- NOTE | 2018-11-27 09:35 | NUR ---
PATIENT UP AMBULATING IN HALLWAYS EARLIER. PATIENT NOW SITTING UP IN BED, RN AND BOYFRIEND IN ROOM. CALL LIGHT IN REACH. NO FURTHER NEEDS AT THIS TIME.
--- NOTE | 2018-11-27 09:48 | NUR ---
MEDICAITONS GIVEN. PT REFUSING HEPARIN INJECTION. DR PUGH IN TO ROUND. NEW ORDERS RECIEVED. PLAN OF CARE DISCUSSED. QUESTIONS ANSWERED.
--- NOTE | 2018-11-27 10:30 | NUR ---
FLUIDS DECREASED TO 55ML/HR PER ORDER.
--- NOTE | 2018-11-27 11:55 | NUR ---
DR PUGH CALLED PER PT REQUEST TO ASK FOR NON NARCOTIC PAIN MEDICATIONS D/T NORCO "BEING CONSTAPATING". VERBAL ORDER FOR TYLENOL 650MG PO Q8P TAKEN.
--- NOTE | 2018-11-27 14:59 | NUR ---
PT OUT AMBULATING IN HALLS. REPORTS PAIN 2/10 AFTER TYLENOL.
--- NOTE | 2018-11-27 15:05 | NUR ---
PATIENT UP TO SHOWER, THEN AMBULATED IN HALLWAY, AND NOW BACK TO BED, INDEPENDENT, MOM IN ROOM. FRESH WATER GIVEN. FRESH ICE PACK GIVEN. CALL LIGHT IN REACH. NO FURTHER NEEDS AT THIS TIME.
--- NOTE | 2018-11-27 18:20 | NUR ---
PATIENT IN BED RESTING. FRESH WATER GIVEN. NEW ICE PACK. CALL LIGHT IN REACH. NO FURTHER NEEDS AT THIS TIME.
--- NOTE | 2018-11-27 18:50 | NUR ---
CALLED TO ROOM. PT WITH SMALL FORM BM. DENIES PAIN. CALL LIGHT IN REACH.
--- NOTE | 2018-11-27 21:39 | NUR ---
JEWEL SORTER ROUNDING NOTE. PT RESTING IN BED, BOYFRIEND AT BEDSIDE. PT DENIES NEEDS OR QUESTIONS AT THIS TIME. CALL LIGHT IN REACH. WHITE BOARD UPDATED.
--- NOTE | 2018-11-28 03:10 | NUR ---
RESTING, EYES CLOSED, NO C/O PAIN, IVF INFUSING, CALL LIGHT AND FLUIDS AT BEDSIDE
--- NOTE | 2018-11-28 05:47 | NUR ---
CURRENTLY RESTING, EYES CLOSED. WAS MEDICATED X2 WITH NORCO 1 TAB W GOOD PAIN RELIEF, WALKED HALLWAYS 3X'S THIS SHIFT. TOLERATED WELL. PASSING GAS AND HAD BM 11/28. VOIDING QS YELLOW URINE. MIDLINE ABD INCISION W SUTURES INTACT IVF INFUSING W/O PROBLEMS. TOLERATING REGULAR DIET WELL, NO N/V
--- NOTE | 2018-11-28 07:19 | NUR ---
REPOORT RECEIVED FROM PRODUCT SPECIALIST RN. PT IN BED WITH EYES CLOSED. CALL LIGHT I REACH.
[2018-11-28] MEDS ORDERED: NORCO 5-325 TA1 EACH PO (09:50)
[2018-11-28] MEDS ORDERED: IBUPROFEN200 M1 PO (09:51)
--- NOTE | 2018-11-28 09:53 | NUR ---
DR PUGH IN TO ASSESS PT. PLAN OF CARE PLAN FOR DC.
== END 2018-11-28 10:35 | disposition home or self-care (01) | DRG 330 ==
LOC: ED 16:24 → MS 16:26
PROVIDERS: ADMIT Colon & Rectal Surgery
PROC: 3E0T3BZ Introduction of Anesthetic Agent into Peripheral Nerves and Plexi, Percutaneous Approach (ICD-10-PCS; 2018-11-23)
PROC: 0DBB0ZZ Excision of Ileum, Open Approach (ICD-10-PCS; principal; 2018-11-23 12:30)
DX: K56.609 Unspecified intestinal obstruction, unspecified as to partial versus complete obstruction (principal); K55.9 Vascular disorder of intestine, unspecified; G89.18 Other acute postprocedural pain; L27.0 Generalized skin eruption due to drugs and medicaments taken internally; T37.3X5A Adverse effect of other antiprotozoal drugs, initial encounter; Y92.239 Unspecified place in hospital as the place of occurrence of the external cause; Z97.5 Presence of (intrauterine) contraceptive device; Z90.49 Acquired absence of other specified parts of digestive tract
CPT/HCPCS: 00790; 36415; 64488; 71045; 74177; 76942; 80053; 81001; 83690; 84703; 85025; 94760; 94762; 96361; 96365; 96367; 96375; 96376; 99285-25; C9113; G0378; J0692; J1100; J1170; J1644; J1885; J2250; J2270; J2405; J2543; J2704; J2765; J2795; J3010; J7030; J7060; J7120; Q9967